=== PATIENT | male | born 1985 | race Caucasian/White ===

== ENCOUNTER 2018-03-25 15:26 | Emergency (ER) | payer OTHER ==
[~2018-03-25] VITALS: Ht 157.5 cm; Wt 75.0 kg
[~2018-03-25 15:26] MED LIST: BENZ1TAB70 PO; DIVA500T35 PO; QUET50TA PO; RISP3 PO
[2018-03-25 15:49] VITALS: BP 121/61
[2018-03-25] MEDS ORDERED: PALI3 PO (15:50)
[2018-03-25 17:43] LABS: BASOPHILS % (AUTO) 1.1 % (0.0-2.0); EOSINOPHILS % (AUTO) 2.9 % (1.0-6.0); HEMATOCRIT 44.9 % (41-53); HEMOGLOBIN 15.4 g/dL (13.5-17.5); LYMPHOCYTES # (AUTO) 3.5 K/uL (1.0-4.8); LYMPHOCYTES % (AUTO) 27.6 % (22.0-44.0); MEAN CORPUSCULAR HEMOGLOBIN 30.8 pg (26.0-34.0); MEAN CORPUSCULAR HGB CONC 34.3 G/dL (31.0-37.0); MEAN CORPUSCULAR VOLUME 90 fL (80-100); MONOCYTES # (AUTO) 0.8 K/uL (0.1-1.0); MONOCYTES % (AUTO) 5.9 % (2.0-9.0); NEUTROPHILS # (AUTO) 7.9 K/uL (1.8-7.7); NEUTROPHILS % (AUTO) 62.5 % (40.0-70.0); PLATELET COUNT (AUTO) 335 K/uL (150-450); RED CELL DISTRIBUTION WIDTH 14.3 % (11.5-14.5)
[2018-03-25 18:02] LABS: AMPHET/METH SCREEN,URINE NEGATIVE (NEGATIVE); BARBITURATE SCREEN, URINE NEGATIVE (NEGATIVE); BENZODIAZEPINES SCREEN,URINE NEGATIVE (NEGATIVE); CANNABINOID SCREEN,URINE NEGATIVE (NEGATIVE); COCAINE SCREEN,URINE NEGATIVE (NEGATIVE); METHADONE SCREEN, URINE NEGATIVE (NEGATIVE); OPIATE SCREEN,URINE NEGATIVE (NEGATIVE)
[2018-03-25 18:07] LABS: ANION GAP 8 mmol/L (8-16); CALCIUM, TOTAL 9.1 mg/dL (8.8-10.5); CARBON DIOXIDE 27 mmol/L (22-29); CHLORIDE 103 mmol/L (98-107); CREATININE 0.99 mg/dL (0.60-1.30); GLOMERULAR FILTR. RATE CALC > 60 mL/min (>60); GLUCOSE,RANDOM 94 mg/dL (70-110); POTASSIUM 3.9 mmol/L (3.5-5.1); SODIUM SERUM 138 mmol/L (136-145); UREA NITROGEN, BLOOD 12 mg/dL (7-18)
[2018-03-25 18:14] LABS: ALANINE AMINOTRANSFERASE 35 U/L (12-78); ALBUMIN 3.6 g/dL (3.4-5.0); ALKALINE PHOSPHATASE 73 U/L (46-116); ASPARTATE AMINOTRANSFERASE 31 U/L (15-37); VALPROIC ACID 35 mcg/mL (50-100)
[2018-03-25 18:18] LABS: PHENCYCLIDINE SCREEN,URINE NEGATIVE (NEGATIVE)
[2018-03-25 18:33] LABS: BILIRUBIN,TOTAL 0.1 mg/dL (0.1-1.0)
== END 2018-03-25 19:44 | disposition left against medical advice (07) ==
LOC: EMS 15:29
DX: F20.9 Schizophrenia, unspecified (principal); F17.210 Nicotine dependence, cigarettes, uncomplicated; M79.1 Myalgia; Z91.89 Other specified personal risk factors, not elsewhere classified
CPT/HCPCS: 36415; 80053; 80164; 80307; 85025; 99284; G0480

== ENCOUNTER 2018-06-21 12:38 | Inpatient (IN) | payer MEDICAID, OTHER ==
[~2018-06-21] VITALS: Ht 172.7 cm; Wt 73.1 kg
[~2018-06-21 12:38] MED LIST changes: +DIVA-78 PO; -DIVA500T35 PO; +PALI3 PO
[2018-06-21 13:35] LABS: BASOPHILS % (AUTO) 0.8 % (0.0-2.0); EOSINOPHILS % (AUTO) 3.3 % (1.0-6.0); HEMATOCRIT 45.5 % (41-53); HEMOGLOBIN 15.6 g/dL (13.5-17.5); LYMPHOCYTES # (AUTO) 2.5 K/uL (1.0-4.8); LYMPHOCYTES % (AUTO) 33.4 % (22.0-44.0); MEAN CORPUSCULAR HGB CONC 34.3 G/dL (31.0-37.0); MEAN CORPUSCULAR VOLUME 91 fL (80-100); MONOCYTES # (AUTO) 0.5 K/uL (0.1-1.0); MONOCYTES % (AUTO) 6.9 % (2.0-9.0); NEUTROPHILS # (AUTO) 4.2 K/uL (1.8-7.7); NEUTROPHILS % (AUTO) 55.6 % (40.0-70.0); PLATELET COUNT (AUTO) 294 K/uL (150-450); RED BLOOD CELL COUNT(AUTO) 5.03 MIL/uL (4.50-5.90); RED CELL DISTRIBUTION WIDTH 13.8 % (11.5-14.5)
[2018-06-21 13:42] LABS: ANION GAP 9 mmol/L (8-16); CALCIUM, TOTAL 8.9 mg/dL (8.8-10.5); CARBON DIOXIDE 29 mmol/L (22-29); CHLORIDE 104 mmol/L (98-107); CREATININE 0.81 mg/dL (0.60-1.30); GLOMERULAR FILTR. RATE CALC > 60 mL/min (>60); GLUCOSE,RANDOM 102 mg/dL (70-110); POTASSIUM 4.4 mmol/L (3.5-5.1); SODIUM SERUM 142 mmol/L (136-145); UREA NITROGEN, BLOOD 14 mg/dL (7-18)
[2018-06-21 13:49] LABS: ALANINE AMINOTRANSFERASE 26 U/L (12-78); ALBUMIN 3.5 g/dL (3.4-5.0); ALKALINE PHOSPHATASE 58 U/L (46-116); ASPARTATE AMINOTRANSFERASE 14 U/L (15-37); BILIRUBIN,TOTAL 0.2 mg/dL (0.1-1.0); TOTAL PROTEIN, SERUM 6.8 g/dL (6.4-8.2); VALPROIC ACID 34 mcg/mL (50-100)
[2018-06-21] MEDS ORDERED: DIVA-78 PO ×2 (15:05)
[2018-06-21] MEDS ORDERED: HALO2 PO (15:05)
[2018-06-21] MEDS ORDERED: PALI234D IM (15:05)
[2018-06-21] MEDS ORDERED: TRAZ-220 PO (15:05)
[2018-06-21] MEDS ORDERED: GuaiFENesin/D-METHORPHAN [SUGAR-FREE] 200-20MG/10 ML SYRUP UDCUP PO PRN (15:15)
[2018-06-21] MEDS ORDERED: LOPERAMIDE HCL 2 MG CAPSULE PO PRN (15:15)
[2018-06-21] MEDS ORDERED: MAG HYDROX/AL HYDROX/SIMETH ES 30 ML SUSPENSION UDCUP PO PRN (15:15)
[2018-06-21] MEDS ORDERED: ACETAMINOPHEN 325 MG TABLET PO PRN (15:15)
[2018-06-21] MEDS ORDERED: HydrOXYzine PAMOATE 50 MG CAPSULE PO PRN (15:15)
[2018-06-21] MEDS ORDERED: TUBERCULIN, PURIFIED PROTEIN DERIVATIVE 5 TU/0.1 ML SYG ID ONE (15:15)
[2018-06-21] MEDS ORDERED: PROMETHAZINE HCL 25 MG TABLET PO PRN (15:15)
[2018-06-21] MEDS ORDERED: MAGNESIUM HYDROXIDE SUSPENSION 30 ML UDCUP PO PRN (15:15)
[2018-06-21] MEDS ORDERED: OLANZapine 5 MG RAPDIS TABLET PO PRN (15:15)
[2018-06-21] MEDS ORDERED: DIVA-76 PO (15:34)
[2018-06-21] MEDS ORDERED: HALO5TAB2 PO (15:34)
[2018-06-21] MEDS: THIAMINE HCL 100 MG TABLET PO SCH (20:58)
[2018-06-21] MEDS: OLANZapine 5 MG RAPDIS TABLET PO SCH (20:58)
[2018-06-21] MEDS: DIVALPROEX SODIUM 500 MG ER TABLET PO SCH (21:07)
[2018-06-21] MEDS ORDERED: NICOTINE 7 MG/24 HOUR PATCH TD ONE (21:30)
[2018-06-22 06:32] LABS: HEMOGLOBIN 16.5 g/dL (13.5-17.5); LYMPHOCYTES # (AUTO) 3.1 K/uL (1.0-4.8); LYMPHOCYTES % (AUTO) 46.6 % (22.0-44.0); MEAN CORPUSCULAR HEMOGLOBIN 31.1 pg (26.0-34.0); MEAN CORPUSCULAR HGB CONC 34.4 G/dL (31.0-37.0); MEAN CORPUSCULAR VOLUME 91 fL (80-100); MONOCYTES # (AUTO) 0.5 K/uL (0.1-1.0); MONOCYTES % (AUTO) 8.1 % (2.0-9.0); NEUTROPHILS # (AUTO) 2.7 K/uL (1.8-7.7); NEUTROPHILS % (AUTO) 40.3 % (40.0-70.0); PLATELET COUNT (AUTO) 283 K/uL (150-450); RED CELL DISTRIBUTION WIDTH 13.7 % (11.5-14.5)
[2018-06-22 06:51] LABS: HEMOGLOBIN A1C 5.6 % (4.5-6.2)
[2018-06-22 06:58] LABS: ALANINE AMINOTRANSFERASE 29 U/L (12-78); ALBUMIN 3.4 g/dL (3.4-5.0); ALKALINE PHOSPHATASE 59 U/L (46-116); ANION GAP 5 mmol/L (8-16); ASPARTATE AMINOTRANSFERASE 13 U/L (15-37); BILIRUBIN,TOTAL 0.3 mg/dL (0.1-1.0); CALCIUM, TOTAL 9.3 mg/dL (8.8-10.5); CARBON DIOXIDE 30 mmol/L (22-29); CHLORIDE 107 mmol/L (98-107); CHOL/HDL RATIO 2.9 (4.2-7.3); CHOLESTEROL 111 mg/dL (131-200); CREATININE 0.96 mg/dL (0.60-1.30); FREE T4 (FREE THYROXINE) 1.05 ng/dL (0.76-1.46); GLOMERULAR FILTR. RATE CALC > 60 mL/min (>60); GLUCOSE,RANDOM 83 mg/dL (70-110); HDL CHOLESTEROL 38 mg/dL (40-60); LDL CHOL (CALC.) 66 mg/dL (0-130); POTASSIUM 4.6 mmol/L (3.5-5.1); SODIUM SERUM 142 mmol/L (136-145); THYROID STIMULATING HORMONE 2.11 uIU/mL (0.36-3.74); TOTAL PROTEIN, SERUM 6.9 g/dL (6.4-8.2); TRIGLYCERIDES 37 mg/dL (15-150); UREA NITROGEN, BLOOD 14 mg/dL (7-18)
[2018-06-22] MEDS: THIAMINE HCL 100 MG TABLET PO SCH ×2 (08:44→16:29)
[2018-06-22] MEDS: FOLIC ACID 1 MG TABLET PO SCH (08:45)
[2018-06-22] MEDS: MULTIVITAMINS WITH MINERALS, THERAPEUTIC TABLET PO SCH (08:45)
[2018-06-22] MEDS: NALTREXONE HCL 50 MG TABLET PO SCH (08:46)
[2018-06-22 10:41] LABS: AMPHET/METH SCREEN,URINE NEGATIVE (NEGATIVE); BARBITURATE SCREEN, URINE NEGATIVE (NEGATIVE); BENZODIAZEPINES SCREEN,URINE NEGATIVE (NEGATIVE); CANNABINOID SCREEN,URINE NEGATIVE (NEGATIVE); COCAINE SCREEN,URINE NEGATIVE (NEGATIVE); METHADONE SCREEN, URINE NEGATIVE (NEGATIVE); OPIATE SCREEN,URINE NEGATIVE (NEGATIVE)
[2018-06-22 10:42] LABS: PHENCYCLIDINE SCREEN,URINE NEGATIVE (NEGATIVE)
[2018-06-22 14:50] VITALS: BP 111/58
[2018-06-22 16:12] VITALS: BP 109/60
[2018-06-22] MEDS: OLANZapine 5 MG RAPDIS TABLET PO SCH (21:16)
[2018-06-22] MEDS: DIVALPROEX SODIUM 500 MG ER TABLET PO SCH (21:16)
[2018-06-23 00:11] VITALS: BP 100/74
[2018-06-23] MEDS: LORazepam 2 MG TABLET PO PRN ×2 (00:28→16:41)
[2018-06-23] MEDS: ZOLPIDEM TARTRATE 10 MG TABLET PO PRN ×2 (00:28→20:30)
[2018-06-23 08:01] VITALS: BP 102/57
[2018-06-23] MEDS: MULTIVITAMINS WITH MINERALS, THERAPEUTIC TABLET PO SCH (08:37)
[2018-06-23] MEDS: THIAMINE HCL 100 MG TABLET PO SCH ×2 (08:37→16:41)
[2018-06-23] MEDS: NALTREXONE HCL 50 MG TABLET PO SCH (08:37)
[2018-06-23] MEDS: FOLIC ACID 1 MG TABLET PO SCH (08:37)
[2018-06-23 16:00] VITALS: BP 132/75
[2018-06-23] MEDS: DIVALPROEX SODIUM 500 MG ER TABLET PO SCH (20:30)
[2018-06-23] MEDS: HALOPERIDOL 5 MG TABLET PO SCH (20:30)
[2018-06-23] MEDS ORDERED: OLANZapine 10 MG RAPDIS TABLET PO SCH (21:00)
[2018-06-24 00:13] VITALS: BP 118/72
[2018-06-24 08:18] VITALS: BP 104/59
[2018-06-24] MEDS: FOLIC ACID 1 MG TABLET PO SCH (08:25)
[2018-06-24] MEDS: MULTIVITAMINS WITH MINERALS, THERAPEUTIC TABLET PO SCH (08:25)
[2018-06-24] MEDS: HALOPERIDOL 5 MG TABLET PO SCH (08:25)
[2018-06-24] MEDS: THIAMINE HCL 100 MG TABLET PO SCH (08:26)
[2018-06-24] MEDS: NALTREXONE HCL 50 MG TABLET PO SCH (08:26)
[2018-06-24] MEDS ORDERED: HALOPERIDOL 5 MG TABLET PO PRN (11:30)
[2018-06-24] MEDS ORDERED: DIVA500T52 PO (12:50)
[2018-06-24] MEDS ORDERED: NALT50TA6 PO (12:50)
== END 2018-06-24 23:23 | disposition home or self-care (01) | DRG 750 ==
LOC: EMS 13:06 → B3A 06-22 12:01
PROVIDERS: ADMIT Psychiatry & Neurology Psychiatry; ATTEND Psychiatry & Neurology Psychiatry
DX: F20.0 Paranoid schizophrenia (principal); R45.851 Suicidal ideations; E66.01 Morbid (severe) obesity due to excess calories; Z91.14 Patient's other noncompliance with medication regimen; F32.9 Major depressive disorder, single episode, unspecified; F17.210 Nicotine dependence, cigarettes, uncomplicated; Z91.19 Patient's noncompliance with other medical treatment and regimen; Z91.5 Personal history of self-harm; Z79.899 Other long term (current) drug therapy; Z68.24 Body mass index [BMI] 24.0-24.9, adult
CPT/HCPCS: 83036; 84439; 84443; 86592; 99285; G0480

== ENCOUNTER 2018-07-04 08:10 | Inpatient (IN) | payer MEDICAID, OTHER ==
[~2018-07-04] VITALS: Ht 167.6 cm; Wt 73.0 kg
[~2018-07-04 08:10] MED LIST changes: -BENZ1TAB70 PO; -DIVA-78 PO; +DIVA500T52 PO; +HALO5TAB2 PO; +NALT50TA6 PO; -PALI3 PO; -QUET50TA PO; -RISP3 PO
[2018-07-04] MEDS ORDERED: RISP1 PO (08:18)
[2018-07-04 08:33] LABS: BASOPHILS % (AUTO) 0.7 % (0.0-2.0); EOSINOPHILS % (AUTO) 0.6 % (1.0-6.0); HEMATOCRIT 46.6 % (41-53); HEMOGLOBIN 16.2 g/dL (13.5-17.5); LYMPHOCYTES # (AUTO) 2.7 K/uL (1.0-4.8); LYMPHOCYTES % (AUTO) 25.4 % (22.0-44.0); MEAN CORPUSCULAR HGB CONC 34.8 G/dL (31.0-37.0); MEAN CORPUSCULAR VOLUME 89 fL (80-100); MONOCYTES # (AUTO) 0.8 K/uL (0.1-1.0); MONOCYTES % (AUTO) 7.1 % (2.0-9.0); NEUTROPHILS # (AUTO) 7.1 K/uL (1.8-7.7); NEUTROPHILS % (AUTO) 66.2 % (40.0-70.0); PLATELET COUNT (AUTO) 311 K/uL (150-450); RED BLOOD CELL COUNT(AUTO) 5.22 MIL/uL (4.50-5.90); RED CELL DISTRIBUTION WIDTH 13.5 % (11.5-14.5)
[2018-07-04 08:43] LABS: ANION GAP 8 mmol/L (8-16); CARBON DIOXIDE 24 mmol/L (22-29); CHLORIDE 105 mmol/L (98-107); CREATININE 0.91 mg/dL (0.60-1.30); GLOMERULAR FILTR. RATE CALC > 60 mL/min (>60); GLUCOSE,RANDOM 96 mg/dL (70-110); POTASSIUM 3.8 mmol/L (3.5-5.1); SODIUM SERUM 137 mmol/L (136-145); UREA NITROGEN, BLOOD 9 mg/dL (7-18)
[2018-07-04] MEDS ORDERED: ZOLPIDEM TARTRATE 10 MG TABLET PO PRN (08:45)
[2018-07-04] MEDS ORDERED: OLANZapine 5 MG RAPDIS TABLET PO PRN (08:45)
[2018-07-04] MEDS ORDERED: HALOPERIDOL 5 MG TABLET PO ONE (08:45)
[2018-07-04] MEDS ORDERED: LORazepam 2 MG TABLET PO PRN (08:45)
[2018-07-04 08:49] LABS: ALANINE AMINOTRANSFERASE 33 U/L (12-78); ALBUMIN 3.9 g/dL (3.4-5.0); ALKALINE PHOSPHATASE 74 U/L (46-116); ASPARTATE AMINOTRANSFERASE 17 U/L (15-37); BILIRUBIN,TOTAL 0.5 mg/dL (0.1-1.0); TOTAL PROTEIN, SERUM 7.5 g/dL (6.4-8.2); VALPROIC ACID 64 mcg/mL (50-100)
[2018-07-04 16:11] LABS: AMPHET/METH SCREEN,URINE NEGATIVE (NEGATIVE); BARBITURATE SCREEN, URINE NEGATIVE (NEGATIVE); BENZODIAZEPINES SCREEN,URINE NEGATIVE (NEGATIVE); CANNABINOID SCREEN,URINE NEGATIVE (NEGATIVE); COCAINE SCREEN,URINE NEGATIVE (NEGATIVE); METHADONE SCREEN, URINE NEGATIVE (NEGATIVE); OPIATE SCREEN,URINE NEGATIVE (NEGATIVE)
[2018-07-04 16:15] LABS: PHENCYCLIDINE SCREEN,URINE NEGATIVE (NEGATIVE)
[2018-07-04 19:41] VITALS: BP 120/67
[2018-07-04] MEDS ORDERED: OLANZapine 5 MG TABLET PO PRN (22:00)
[2018-07-05 06:11] VITALS: BP 124/75
[2018-07-05 08:02] VITALS: BP 113/85
[2018-07-05] MEDS: RisperiDONE 1 MG TABLET PO SCH (08:38)
[2018-07-05 16:02] VITALS: BP 112/60
[2018-07-05] MEDS: DIVALPROEX SODIUM 500 MG ER TABLET PO SCH (20:43)
[2018-07-05] MEDS ORDERED: HALOPERIDOL 5 MG TABLET PO SCH (21:00)
[2018-07-06 00:05] VITALS: BP 109/63
[2018-07-06 08:03] VITALS: BP 116/70
[2018-07-06] MEDS: RisperiDONE 1 MG TABLET PO SCH (08:24)
[2018-07-06] MEDS ORDERED: HALOPERIDOL 5 MG TABLET PO PRN (10:00)
[2018-07-06] MEDS ORDERED: HydrOXYzine PAMOATE 50 MG CAPSULE PO PRN (10:00)
[2018-07-06] MEDS ORDERED: GuaiFENesin/D-METHORPHAN [SUGAR-FREE] 200-20MG/10 ML SYRUP UDCUP PO PRN (10:00)
[2018-07-06] MEDS ORDERED: ACETAMINOPHEN 325 MG TABLET PO PRN (10:00)
[2018-07-06] MEDS ORDERED: LOPERAMIDE HCL 2 MG CAPSULE PO PRN (10:00)
[2018-07-06] MEDS ORDERED: MAG HYDROX/AL HYDROX/SIMETH ES 30 ML SUSPENSION UDCUP PO PRN (10:00)
[2018-07-06] MEDS ORDERED: PROMETHAZINE HCL 25 MG TABLET PO PRN (10:00)
[2018-07-06] MEDS: THIAMINE HCL 100 MG TABLET PO SCH (16:36)
[2018-07-06 17:03] VITALS: BP 119/70
[2018-07-06] MEDS: DIVALPROEX SODIUM 500 MG ER TABLET PO SCH (20:16)
[2018-07-06] MEDS ORDERED: HALOPERIDOL 10 MG TABLET PO SCH (21:00)
[2018-07-07 00:34] VITALS: BP 115/62
[2018-07-07 08:02] VITALS: BP 112/64
[2018-07-07] MEDS: NALTREXONE HCL 50 MG TABLET PO SCH (08:23)
[2018-07-07] MEDS: FOLIC ACID 1 MG TABLET PO SCH (08:23)
[2018-07-07] MEDS: MULTIVITAMINS WITH MINERALS, THERAPEUTIC TABLET PO SCH (08:23)
[2018-07-07] MEDS: THIAMINE HCL 100 MG TABLET PO SCH ×2 (08:23→16:11)
[2018-07-07 10:30] VITALS: BP 109/58
[2018-07-07 11:33] VITALS: BP 112/62
[2018-07-07 16:02] VITALS: BP 101/60
[2018-07-07] MEDS: LORazepam 2 MG TABLET PO PRN (16:12)
[2018-07-07 16:14] VITALS: BP 110/70
[2018-07-07] MEDS: HALOPERIDOL 10 MG TABLET PO SCH (20:35)
[2018-07-07] MEDS: DIVALPROEX SODIUM 500 MG ER TABLET PO SCH (20:35)
[2018-07-08 05:40] VITALS: BP 111/55
[2018-07-08 08:53] VITALS: BP 106/66
[2018-07-08] MEDS: THIAMINE HCL 100 MG TABLET PO SCH ×2 (09:21→16:40)
[2018-07-08] MEDS: MULTIVITAMINS WITH MINERALS, THERAPEUTIC TABLET PO SCH (09:21)
[2018-07-08] MEDS: NALTREXONE HCL 50 MG TABLET PO SCH (09:21)
[2018-07-08] MEDS: LORazepam 2 MG TABLET PO PRN ×2 (09:22→16:40)
[2018-07-08] MEDS: FOLIC ACID 1 MG TABLET PO SCH (09:22)
[2018-07-08 16:25] VITALS: BP 114/78
[2018-07-08] MEDS: DIVALPROEX SODIUM 500 MG ER TABLET PO SCH (20:36)
[2018-07-08] MEDS: HALOPERIDOL 10 MG TABLET PO SCH (20:36)
[2018-07-09 04:16] VITALS: BP 134/73
[2018-07-09 08:00] VITALS: BP 120/67
[2018-07-09] MEDS: FOLIC ACID 1 MG TABLET PO SCH (08:34)
[2018-07-09] MEDS: NALTREXONE HCL 50 MG TABLET PO SCH (08:34)
[2018-07-09] MEDS: THIAMINE HCL 100 MG TABLET PO SCH ×2 (08:34→16:38)
[2018-07-09] MEDS: LORazepam 2 MG TABLET PO PRN ×2 (08:34→16:38)
[2018-07-09] MEDS: MULTIVITAMINS WITH MINERALS, THERAPEUTIC TABLET PO SCH (08:34)
[2018-07-09 16:00] VITALS: BP 116/66
[2018-07-09] MEDS: DIVALPROEX SODIUM 500 MG ER TABLET PO SCH (20:27)
[2018-07-09] MEDS: HALOPERIDOL 10 MG TABLET PO SCH (20:27)
[2018-07-10 05:57] VITALS: BP 122/65
[2018-07-10 08:04] VITALS: BP 110/67
[2018-07-10] MEDS: THIAMINE HCL 100 MG TABLET PO SCH ×2 (08:41→16:41)
[2018-07-10] MEDS: MULTIVITAMINS WITH MINERALS, THERAPEUTIC TABLET PO SCH (08:41)
[2018-07-10] MEDS: FOLIC ACID 1 MG TABLET PO SCH (08:41)
[2018-07-10] MEDS: NALTREXONE HCL 50 MG TABLET PO SCH (08:41)
[2018-07-10] MEDS: LORazepam 2 MG TABLET PO PRN (11:20)
[2018-07-10 16:33] VITALS: BP 110/65
[2018-07-10] MEDS: DIVALPROEX SODIUM 500 MG ER TABLET PO SCH (20:49)
[2018-07-10] MEDS: HALOPERIDOL 10 MG TABLET PO SCH (20:49)
[2018-07-11 05:21] VITALS: BP 120/74
[2018-07-11 08:00] VITALS: BP 106/65
[2018-07-11] MEDS: FOLIC ACID 1 MG TABLET PO SCH (08:44)
[2018-07-11] MEDS: MULTIVITAMINS WITH MINERALS, THERAPEUTIC TABLET PO SCH (08:44)
[2018-07-11] MEDS: NALTREXONE HCL 50 MG TABLET PO SCH (08:44)
[2018-07-11] MEDS: THIAMINE HCL 100 MG TABLET PO SCH ×2 (08:44→16:29)
[2018-07-11 16:00] VITALS: BP 116/65
[2018-07-11] MEDS: DIVALPROEX SODIUM 500 MG ER TABLET PO SCH (20:08)
[2018-07-11] MEDS: HALOPERIDOL 10 MG TABLET PO SCH (20:08)
[2018-07-11] MEDS: LORazepam 2 MG TABLET PO PRN (21:39)
[2018-07-12 08:22] VITALS: BP 110/63
[2018-07-12] MEDS: THIAMINE HCL 100 MG TABLET PO SCH ×2 (08:35→16:47)
[2018-07-12] MEDS: NALTREXONE HCL 50 MG TABLET PO SCH (08:35)
[2018-07-12] MEDS: MULTIVITAMINS WITH MINERALS, THERAPEUTIC TABLET PO SCH (08:35)
[2018-07-12] MEDS: FOLIC ACID 1 MG TABLET PO SCH (08:35)
[2018-07-12 16:03] VITALS: BP 112/66
[2018-07-12] MEDS: LORazepam 2 MG TABLET PO PRN (16:47)
[2018-07-12] MEDS: DIVALPROEX SODIUM 500 MG ER TABLET PO SCH (20:21)
[2018-07-12] MEDS: HALOPERIDOL 10 MG TABLET PO SCH (20:21)
[2018-07-12] MEDS: ZOLPIDEM TARTRATE 10 MG TABLET PO PRN (20:21)
[2018-07-13 04:13] VITALS: BP 110/70
[2018-07-13 08:02] VITALS: BP 113/62
[2018-07-13] MEDS: THIAMINE HCL 100 MG TABLET PO SCH ×2 (08:26→16:25)
[2018-07-13] MEDS: NALTREXONE HCL 50 MG TABLET PO SCH (08:26)
[2018-07-13] MEDS: FOLIC ACID 1 MG TABLET PO SCH (08:26)
[2018-07-13] MEDS: MULTIVITAMINS WITH MINERALS, THERAPEUTIC TABLET PO SCH (08:26)
[2018-07-13 16:00] VITALS: BP 121/65
[2018-07-13] MEDS: LORazepam 2 MG TABLET PO PRN (16:25)
[2018-07-13] MEDS: HALOPERIDOL 10 MG TABLET PO SCH (20:24)
[2018-07-13] MEDS: ZOLPIDEM TARTRATE 10 MG TABLET PO PRN (20:24)
[2018-07-13] MEDS: DIVALPROEX SODIUM 500 MG ER TABLET PO SCH (20:24)
[2018-07-14 00:05] VITALS: BP 122/80
[2018-07-14] MEDS: LORazepam 2 MG TABLET PO PRN ×2 (02:05→16:44)
[2018-07-14 08:02] VITALS: BP 109/60
[2018-07-14] MEDS: NALTREXONE HCL 50 MG TABLET PO SCH (08:30)
[2018-07-14] MEDS: FOLIC ACID 1 MG TABLET PO SCH (08:30)
[2018-07-14] MEDS: MULTIVITAMINS WITH MINERALS, THERAPEUTIC TABLET PO SCH (08:30)
[2018-07-14] MEDS: THIAMINE HCL 100 MG TABLET PO SCH ×2 (08:31→16:44)
[2018-07-14 16:00] VITALS: BP 118/68
[2018-07-14] MEDS: DIVALPROEX SODIUM 500 MG ER TABLET PO SCH (20:16)
[2018-07-14] MEDS: ZOLPIDEM TARTRATE 10 MG TABLET PO PRN (20:16)
[2018-07-14] MEDS: HALOPERIDOL 10 MG TABLET PO SCH (20:16)
[2018-07-15 06:18] VITALS: BP 118/75
[2018-07-15 08:02] VITALS: BP 108/60
[2018-07-15] MEDS: NALTREXONE HCL 50 MG TABLET PO SCH (09:13)
[2018-07-15] MEDS: THIAMINE HCL 100 MG TABLET PO SCH ×2 (09:13→16:36)
[2018-07-15] MEDS: MULTIVITAMINS WITH MINERALS, THERAPEUTIC TABLET PO SCH (09:13)
[2018-07-15] MEDS: FOLIC ACID 1 MG TABLET PO SCH (09:13)
[2018-07-15] MEDS: LORazepam 2 MG TABLET PO PRN ×2 (09:13→16:36)
[2018-07-15] MEDS ORDERED: HALO10 PO (14:20)
[2018-07-15] MEDS ORDERED: DIVA500T52 PO (14:20)
[2018-07-15] MEDS ORDERED: NALT50TA PO (14:20)
[2018-07-15 16:00] VITALS: BP 111/68
[2018-07-15] MEDS: DIVALPROEX SODIUM 500 MG ER TABLET PO SCH (20:19)
[2018-07-15] MEDS: HALOPERIDOL 10 MG TABLET PO SCH (20:19)
[2018-07-15] MEDS: ZOLPIDEM TARTRATE 10 MG TABLET PO PRN (20:19)
[2018-07-16 00:36] VITALS: BP 112/61
[2018-07-16] MEDS: MULTIVITAMINS WITH MINERALS, THERAPEUTIC TABLET PO SCH (09:06)
[2018-07-16] MEDS: NALTREXONE HCL 50 MG TABLET PO SCH (09:06)
[2018-07-16] MEDS: FOLIC ACID 1 MG TABLET PO SCH (09:07)
[2018-07-16] MEDS: THIAMINE HCL 100 MG TABLET PO SCH (09:07)
[2018-07-16] MEDS ORDERED: DIVA500T52 PO (10:11)
[2018-07-16] MEDS ORDERED: HALO10 PO (10:12)
[2018-07-16] MEDS ORDERED: NALT50TA6 PO (10:12)
== END 2018-07-16 14:28 | disposition home or self-care (01) | DRG 750 ==
LOC: EMS 08:11 → B3A 17:30
PROVIDERS: ADMIT Psychiatry & Neurology Psychiatry; ATTEND Psychiatry & Neurology Psychiatry
DX: F25.0 Schizoaffective disorder, bipolar type (principal); I95.9 Hypotension, unspecified; R45.851 Suicidal ideations; F17.210 Nicotine dependence, cigarettes, uncomplicated; Z91.19 Patient's noncompliance with other medical treatment and regimen; Z79.899 Other long term (current) drug therapy
CPT/HCPCS: 80173; 87081; 99285; G0480

== ENCOUNTER 2019-01-18 13:11 | Inpatient (IN) | payer MEDICAID, OTHER ==
[~2019-01-18] VITALS: Ht 165.1 cm; Wt 74.5 kg
[~2019-01-18 13:11] MED LIST changes: +BENZ1TAB10 PO; +HALO10 PO; -HALO5TAB2 PO
[2019-01-18] MEDS ORDERED: LORazepam 2 MG/ML VIAL ONE (13:33)
[2019-01-18] MEDS ORDERED: DiphenhydrAMINE HCL 50 MG/ML VIAL ONE (13:33)
[2019-01-18] MEDS ORDERED: HALOPERIDOL LACTATE 5 MG/ML VIAL ONE (13:33)
[2019-01-18] MEDS ORDERED: DiphenhydrAMINE HCL 50 MG/ML VIAL IM ONE (13:35)
[2019-01-18] MEDS ORDERED: HALOPERIDOL LACTATE 5 MG/ML VIAL IM ONE (13:35)
[2019-01-18] MEDS ORDERED: LORazepam 2 MG/ML VIAL IM ONE (13:35)
[2019-01-18] MEDS ORDERED: IBUPROFEN 400 MG TABLET PO PRN (15:00)
[2019-01-18] MEDS ORDERED: ACETAMINOPHEN 325 MG TABLET PO PRN (15:00)
[2019-01-18 15:09] LABS: BASOPHILS % (AUTO) 0.7 % (0.0-2.0); EOSINOPHILS % (AUTO) 0.2 % (1.0-6.0); HEMATOCRIT 46.7 % (41-53); HEMOGLOBIN 15.7 g/dL (13.5-17.5); LYMPHOCYTES # (AUTO) 1.4 K/uL (1.0-4.8); LYMPHOCYTES % (AUTO) 10.2 % (22.0-44.0); MEAN CORPUSCULAR HEMOGLOBIN 30.4 pg (26.0-34.0); MEAN CORPUSCULAR HGB CONC 33.6 G/dL (31.0-37.0); MEAN CORPUSCULAR VOLUME 90 fL (80-100); MONOCYTES # (AUTO) 0.6 K/uL (0.1-1.0); MONOCYTES % (AUTO) 4.1 % (2.0-9.0); NEUTROPHILS # (AUTO) 11.5 K/uL (1.8-7.7); NEUTROPHILS % (AUTO) 84.8 % (40.0-70.0); PLATELET COUNT (AUTO) 335 K/uL (150-450); RED BLOOD CELL COUNT(AUTO) 5.18 MIL/uL (4.50-5.90); RED CELL DISTRIBUTION WIDTH 14.1 % (11.5-14.5)
[2019-01-18 15:18] LABS: ANION GAP 11 mmol/L (8-16); CALCIUM, TOTAL 9.3 mg/dL (8.8-10.5); CARBON DIOXIDE 26 mmol/L (22-29); CHLORIDE 103 mmol/L (98-107); CREATININE 0.99 mg/dL (0.60-1.30); GLOMERULAR FILTR. RATE CALC > 60 mL/min (>60); GLUCOSE,RANDOM 94 mg/dL (70-110); POTASSIUM 3.9 mmol/L (3.5-5.1); SODIUM SERUM 140 mmol/L (136-145); UREA NITROGEN, BLOOD 11 mg/dL (7-18)
[2019-01-18 15:25] LABS: ALANINE AMINOTRANSFERASE 35 U/L (12-78); ALBUMIN 3.7 g/dL (3.4-5.0); ALKALINE PHOSPHATASE 78 U/L (46-116); ASPARTATE AMINOTRANSFERASE 22 U/L (15-37); BILIRUBIN,TOTAL 0.2 mg/dL (0.1-1.0); TOTAL PROTEIN, SERUM 7.3 g/dL (6.4-8.2); VALPROIC ACID 31 mcg/mL (50-100)
[2019-01-18 16:52] LABS: AMPHET/METH SCREEN,URINE NEGATIVE (NEGATIVE); BARBITURATE SCREEN, URINE NEGATIVE (NEGATIVE); BENZODIAZEPINES SCREEN,URINE NEGATIVE (NEGATIVE); CANNABINOID SCREEN,URINE NEGATIVE (NEGATIVE); COCAINE SCREEN,URINE NEGATIVE (NEGATIVE); METHADONE SCREEN, URINE NEGATIVE (NEGATIVE); OPIATE SCREEN,URINE NEGATIVE (NEGATIVE)
[2019-01-18 16:54] LABS: PHENCYCLIDINE SCREEN,URINE NEGATIVE (NEGATIVE)
[2019-01-18 17:35] VITALS: BP 135/62
[2019-01-18] MEDS ORDERED: -PHARMACY VACCINE NOTE- MISC ONE (17:45)
[2019-01-19 02:47] VITALS: BP 122/66
[2019-01-19 08:08] LABS: BASOPHILS % (AUTO) 0.5 % (0.0-2.0); EOSINOPHILS % (AUTO) 0.6 % (1.0-6.0); HEMATOCRIT 44.6 % (41-53); HEMOGLOBIN 15.5 g/dL (13.5-17.5); HEMOGLOBIN A1C 5.7 % (4.5-6.2); LYMPHOCYTES % (AUTO) 20.1 % (22.0-44.0); MEAN CORPUSCULAR HEMOGLOBIN 31.2 pg (26.0-34.0); MEAN CORPUSCULAR HGB CONC 34.7 G/dL (31.0-37.0); MEAN CORPUSCULAR VOLUME 90 fL (80-100); MONOCYTES # (AUTO) 0.6 K/uL (0.1-1.0); MONOCYTES % (AUTO) 6.4 % (2.0-9.0); NEUTROPHILS # (AUTO) 7.2 K/uL (1.8-7.7); NEUTROPHILS % (AUTO) 72.4 % (40.0-70.0); PLATELET COUNT (AUTO) 342 K/uL (150-450); RED BLOOD CELL COUNT(AUTO) 4.96 MIL/uL (4.50-5.90); RED CELL DISTRIBUTION WIDTH 14.3 % (11.5-14.5)
[2019-01-19] MEDS: HALOPERIDOL 5 MG TABLET PO PRN (08:15)
[2019-01-19] MEDS: LORazepam 2 MG TABLET PO PRN ×3 (08:15→20:30)
[2019-01-19 08:17] LABS: ALANINE AMINOTRANSFERASE 36 U/L (12-78); ALBUMIN 3.6 g/dL (3.4-5.0); ALKALINE PHOSPHATASE 79 U/L (46-116); ANION GAP 7 mmol/L (8-16); ASPARTATE AMINOTRANSFERASE 41 U/L (15-37); BILIRUBIN,TOTAL 0.3 mg/dL (0.1-1.0); CALCIUM, TOTAL 9.1 mg/dL (8.8-10.5); CARBON DIOXIDE 27 mmol/L (22-29); CHLORIDE 104 mmol/L (98-107); CHOL/HDL RATIO 2.4 (4.2-7.3); CHOLESTEROL 96 mg/dL (131-200); CREATININE 0.93 mg/dL (0.60-1.30); GLOMERULAR FILTR. RATE CALC > 60 mL/min (>60); GLUCOSE,RANDOM 109 mg/dL (70-110); HDL CHOLESTEROL 40 mg/dL (40-60); LDL CHOL (CALC.) 50 mg/dL (0-130); POTASSIUM 3.9 mmol/L (3.5-5.1); SODIUM SERUM 138 mmol/L (136-145); THYROID STIMULATING HORMONE 2.31 uIU/mL (0.36-3.74); TRIGLYCERIDES 30 mg/dL (15-150); UREA NITROGEN, BLOOD 15 mg/dL (7-18)
[2019-01-19 08:18] VITALS: BP 114/64
[2019-01-19 16:09] VITALS: BP 121/65
[2019-01-19] MEDS: HALOPERIDOL 10 MG TABLET PO SCH (16:20)
[2019-01-19] MEDS: BENZTROPINE MESYLATE 1 MG TABLET PO SCH (16:20)
[2019-01-19] MEDS: DIVALPROEX SODIUM 500 MG ER TABLET PO SCH (20:30)
[2019-01-19] MEDS: ZOLPIDEM TARTRATE 10 MG TABLET PO PRN (20:30)
[2019-01-20 00:45] VITALS: BP 106/66
[2019-01-20] MEDS: LORazepam 2 MG TABLET PO PRN ×3 (01:06→20:36)
[2019-01-20] MEDS: BENZTROPINE MESYLATE 1 MG TABLET PO SCH ×2 (08:09→16:36)
[2019-01-20] MEDS: HALOPERIDOL 10 MG TABLET PO SCH ×2 (08:09→16:36)
[2019-01-20 08:13] VITALS: BP 117/67
[2019-01-20 16:24] VITALS: BP 110/68
[2019-01-20] MEDS: HALOPERIDOL 5 MG TABLET PO PRN (16:36)
[2019-01-20] MEDS: ZOLPIDEM TARTRATE 10 MG TABLET PO PRN (20:36)
[2019-01-20] MEDS: DIVALPROEX SODIUM 500 MG ER TABLET PO SCH (20:36)
[2019-01-21 00:59] VITALS: BP 113/74
[2019-01-21] MEDS: LORazepam 2 MG TABLET PO PRN ×3 (01:00→16:32)
[2019-01-21 08:00] VITALS: BP 108/65
[2019-01-21] MEDS: HALOPERIDOL 10 MG TABLET PO SCH (08:23)
[2019-01-21] MEDS: BENZTROPINE MESYLATE 1 MG TABLET PO SCH ×2 (08:23→16:32)
[2019-01-21 16:20] VITALS: BP 120/68
[2019-01-21] MEDS: HALOPERIDOL 5 MG TABLET PO SCH (16:32)
[2019-01-21] MEDS: DIVALPROEX SODIUM 500 MG ER TABLET PO SCH (20:56)
[2019-01-21] MEDS: ZOLPIDEM TARTRATE 10 MG TABLET PO PRN (20:56)
[2019-01-22 00:20] VITALS: BP 111/62
[2019-01-22 08:17] VITALS: BP 110/72
[2019-01-22] MEDS: LORazepam 2 MG TABLET PO PRN ×2 (08:33→18:38)
[2019-01-22] MEDS: BENZTROPINE MESYLATE 1 MG TABLET PO SCH ×2 (08:33→16:18)
[2019-01-22] MEDS: HALOPERIDOL 5 MG TABLET PO SCH ×2 (08:33→16:18)
[2019-01-22 16:00] VITALS: BP 113/65
[2019-01-22] MEDS: DIVALPROEX SODIUM 500 MG ER TABLET PO SCH (20:11)
[2019-01-22] MEDS: ZOLPIDEM TARTRATE 10 MG TABLET PO PRN (21:05)
[2019-01-23 05:46] VITALS: BP 125/79
[2019-01-23] MEDS: BENZTROPINE MESYLATE 1 MG TABLET PO SCH ×2 (08:44→16:43)
[2019-01-23] MEDS: LORazepam 2 MG TABLET PO PRN ×2 (08:44→16:45)
[2019-01-23] MEDS: HALOPERIDOL 5 MG TABLET PO SCH ×2 (08:44→16:45)
[2019-01-23 08:52] VITALS: BP 128/74
[2019-01-23 16:12] VITALS: BP 124/75
[2019-01-23] MEDS: ZOLPIDEM TARTRATE 10 MG TABLET PO PRN (20:09)
[2019-01-23] MEDS: DIVALPROEX SODIUM 500 MG ER TABLET PO SCH (20:09)
[2019-01-24 00:50] VITALS: BP 126/82
[2019-01-24] MEDS: LORazepam 2 MG TABLET PO PRN (08:20)
[2019-01-24] MEDS: HALOPERIDOL 5 MG TABLET PO SCH (08:20)
[2019-01-24] MEDS: BENZTROPINE MESYLATE 1 MG TABLET PO SCH (08:21)
[2019-01-24 08:29] VITALS: BP 128/64
[2019-01-24] MEDS ORDERED: HALO5TAB2 PO (12:44)
== END 2019-01-24 14:15 | disposition home or self-care (01) | DRG 750 ==
LOC: EMS 13:12 → B3A 15:42
PROVIDERS: ADMIT Psychiatry & Neurology Psychiatry; ATTEND Psychiatry & Neurology Psychiatry
DX: F25.0 Schizoaffective disorder, bipolar type (principal); Z78.1 Physical restraint status; B19.20 Unspecified viral hepatitis C without hepatic coma; F10.10 Alcohol abuse, uncomplicated; I10 Essential (primary) hypertension; G44.209 Tension-type headache, unspecified, not intractable; F11.10 Opioid abuse, uncomplicated; F17.210 Nicotine dependence, cigarettes, uncomplicated; Z79.899 Other long term (current) drug therapy; Z71.51 Drug abuse counseling and surveillance of drug abuser; Z71.41 Alcohol abuse counseling and surveillance of alcoholic
CPT/HCPCS: 80074; 83036; 84443; 87081; 87340; 96372; 99291; G0480; J1200; J1630; J2060

== ENCOUNTER 2020-05-08 20:02 | Emergency (ER) | payer MEDICAID, OTHER ==
[~2020-05-08] VITALS: Ht 175.3 cm; Wt 80.0 kg
[~2020-05-08 20:02] MED LIST changes: -HALO10 PO; +HALO5TAB2 PO; -NALT50TA6 PO
[2020-05-08 20:41] LABS: BASOPHILS % (AUTO) 0.6 % (0.0-2.0); EOSINOPHILS % (AUTO) 0.2 % (1.0-6.0); HEMATOCRIT 42.5 % (41-53); HEMOGLOBIN 14.6 g/dL (13.5-17.5); LYMPHOCYTES # (AUTO) 2.8 K/uL (1.0-4.8); MEAN CORPUSCULAR HEMOGLOBIN 31.4 pg (26.0-34.0); MEAN CORPUSCULAR HGB CONC 34.2 G/dL (31.0-37.0); MEAN CORPUSCULAR VOLUME 92 fL (80-100); MONOCYTES # (AUTO) 1.1 K/uL (0.1-1.0); MONOCYTES % (AUTO) 6.5 % (2.0-9.0); NEUTROPHILS # (AUTO) 13.3 K/uL (1.8-7.7); NEUTROPHILS % (AUTO) 76.7 % (40.0-70.0); PLATELET COUNT (AUTO) 294 K/uL (150-450); RED BLOOD CELL COUNT(AUTO) 4.63 MIL/uL (4.50-5.90); RED CELL DISTRIBUTION WIDTH 13.7 % (11.5-14.5)
[2020-05-08 20:51] LABS: ANION GAP 9 mmol/L (8-16); CALCIUM, TOTAL 8.6 mg/dL (8.8-10.5); CARBON DIOXIDE 26 mmol/L (22-29); CHLORIDE 102 mmol/L (98-107); CREATININE 0.85 mg/dL (0.60-1.30); GLOMERULAR FILTR. RATE CALC > 60 mL/min (>60); GLUCOSE,RANDOM 104 mg/dL (70-110); POTASSIUM 3.9 mmol/L (3.5-5.1); SODIUM SERUM 137 mmol/L (136-145); UREA NITROGEN, BLOOD 11 mg/dL (7-18)
[2020-05-08 20:58] LABS: ALANINE AMINOTRANSFERASE 21 U/L (12-78); ALBUMIN 3.3 g/dL (3.4-5.0); ALKALINE PHOSPHATASE 62 U/L (46-116); ASPARTATE AMINOTRANSFERASE 10 U/L (15-37); BILIRUBIN,TOTAL 0.5 mg/dL (0.1-1.0); VALPROIC ACID 88 mcg/mL (50-100)
[2020-05-08 22:35] LABS: AMPHET/METH SCREEN,URINE NEGATIVE (NEGATIVE); BARBITURATE SCREEN, URINE NEGATIVE (NEGATIVE); BENZODIAZEPINES SCREEN,URINE NEGATIVE (NEGATIVE); CANNABINOID SCREEN,URINE NEGATIVE (NEGATIVE); COCAINE SCREEN,URINE NEGATIVE (NEGATIVE); METHADONE SCREEN, URINE NEGATIVE (NEGATIVE); OPIATE SCREEN,URINE NEGATIVE (NEGATIVE)
[2020-05-08 22:36] LABS: PHENCYCLIDINE SCREEN,URINE NEGATIVE (NEGATIVE)
[2020-05-09 01:40] VITALS: BP 94/56
== END 2020-05-09 01:44 | disposition short-term general hospital (02) ==
LOC: EMS 20:02
DX: T17.498A Other foreign object in trachea causing other injury, initial encounter (principal); F20.9 Schizophrenia, unspecified; W45.8XXA Other foreign body or object entering through skin, initial encounter; Y93.89 Activity, other specified; Y92.89 Other specified places as the place of occurrence of the external cause; Y99.8 Other external cause status
CPT/HCPCS: 36415; 71045; 72170; 74018; 80053; 80164; 80307; 85025; 93005; 99291; G0480